=== PATIENT | female | born 1965 | race Caucasian/White ===

== ENCOUNTER 2023-09-20 22:20 | Emergency (ER) | payer OTHER, SELFPAY ==
[2023-09-20 22:23] VITALS: BP 124/76; PULSE 66; RESP 22; TEMP 36.4; O2SAT 96; BMI 29.0
--- NOTE | 2023-09-20 22:23 | XRR_ITS ---
PROCEDURE INFORMATION: Exam: XR Chest Exam date and time: 09/20/2023 10:38 PM Age: 58 years old Clinical indication: Shortness of breath; Patient HX: C/O SOB; Additional info: Dyspnea TECHNIQUE: Imaging protocol: Radiologic exam of the chest. Views: 1 view. COMPARISON: No relevant prior studies available. FINDINGS: Lungs: Unremarkable. No consolidation. Pleural spaces: Unremarkable. No pleural effusion. No pneumothorax. Heart/Mediastinum: Unremarkable. No cardiomegaly. Bones/joints: Unremarkable. XR/XR chest 1V portable [id number] IMPRESSION: No acute findings.
--- NOTE | 2023-09-20 22:30 | ECG_ITS ---
[facility] Test Date: 2023-09-20 Pat Name: Dior Overton Department: Room: Gender: Female Director Of Global Sales: : 1965 Requested By: Freddy Martinez Order Number: [id number] Manpreet MD: Michael Lanza M.D. Measurements Intervals [place] Rate: 51 P: 41 TX: 139 QRS: 12 QRSD: 102 T: 0 QT: 420 QTc: 389 Interpretive Statements SINUS BRADYCARDIA POSSIBLE LEFT ATRIAL ENLARGEMENT [-0.1mV P-WAVE IN V1/V2] INCOMPLETE RIGHT BUNDLE BRANCH BLOCK [90+ ms QRS DURATION, TERMINAL R IN V1/V2, 40+ ms S IN I/aVL/V4/V5/V6] MODERATE T-WAVE ABNORMALITY, CONSIDER ANTERIOR ISCHEMIA [-0.1+ mV T-WAVE IN V3/V4] No previous ECG available for comparison Electronically Signed On 09-22-2023 21:32:22 CDT by Michael Lanza M.D. [id number]
--- NOTE | 2023-09-20 22:43 | ED_ITS ---
HPI - SOB/Dyspnea 2 General: Chief Complaint: Shortness of Breath/Dyspnea Stated Complaint: SOB Time Seen by Provider: 09/20/23 22:21 Source: patient Mode of arrival: ambulatory Limitations: no limitations History of Present Illness: HPI Narrative: 58-year-old female with history of COPD longtime smoker states that she is diagnosed with pneumonia last week she is finished her course azithromycin and steroids and states she started having some shortness of breath tonight she started roughly 2 hours ago states her symptoms have improved she got feeling as short of breath she still had a slight cough she denies any chest pain denies any exertional dyspnea patient denies fever she has had bilateral joint pain in her knees. Associated symptoms: Deny abdominal pain, chest pain, fever(s), nausea or vomiting Review of Systems 2 Const: Denies: fever(s), chills, body aches or change in appetite ENMT: Denies: throat pain or dental pain Card: Denies: chest pain Resp: Reports: dyspnea, non-productive cough and wheezing GI: Denies: abdominal pain, nausea, vomiting or diarrhea Musc: Denies: neck pain or back pain Skin/Breast: Denies: rash Neuro: Denies: headache(s) Physical Exam 2 Const: COMMON NORMALS: no acute distress, patient oriented x3 and healthy appearing HENMT: COMMON NORMALS: normocephalic and atraumatic HEAD & SCALP: n ormocephalic and atraumatic Eye: COMMON NORMALS: conjunctivae normal CONJUNCTIVA: Yes conjunctivae normal Neck/C-Spine: COMMON NORMALS: full ROM and supple Chest: COMMONS NORMALS: normal inspection of the chest and normal palpation of entire chest wall Resp: COMMON NORMALS: No retractions and No use of accessory muscles OTHER: mild wheezing Cardio: COMMON NORMALS: regular rate, regular rhythm and No murmurs present (Cardio) RATE: regular rate RHYTHM: regular rhythm Extremity: COMMON NORMALS: normal to inspection and full ROM Neuro: COMMON NORMALS: patient oriented x3, moves all extremities and no focal motor deficits Psych: COMMON NORMALS: mental status grossly normal, Normal thought process present and cooperative THOUGHT PROCESS: Normal thought process present Skin: COMMON NORMALS: no rashes or lesions noted and no wounds GENERAL SKIN EXAM: no rashes or lesions noted Course 2 Vital Signs: Vital signs: Vital Signs Temperature 97.5 F L 09/20/23 22:23 Pulse Rate 85 09/21/23 00:10 Respiratory Rate 22 H 09/21/23 00:10 Blood Pressure 130/86 09/20/23 22:53 Pulse Oximetry 94 09/21/23 00:10 Oxygen Delivery Me thod Room Air 09/21/23 00:10 MDM - SOB/Dyspnea Medical Decision Making Patient presents with shortness of breath likely from her COPD she has been well-appearing here in no respiratory distress her pulse ox has been normal. D- dimer is negative no signs of acute coronary syndrome or pulmonary embolism. She had no chest pain. She does have some bilateral knee pain exam is benign no signs of septic joints distal pulses intact no signs of DVT she stable for discharge she is follow-up with her PCP and return if worsening. She did have a mildly elevated white count likely due to recent steroids Medical Records I reviewed the patient's medical records. Lab Data I reviewed the patient's lab results. 09/20/23 22:51 09/20/23 22:51 Labs/Radiology: Radiology Impressions Chest X-Ray 09/20/23 22:23 IMPRESSION: No acute findings. Laboratory Results WBC 14.16 10^3/uL (3.29-11.43) H 09/20/23 22:51 RBC 4.78 10^6/uL (3.85-5.65) 09/20/23 22:51 Hgb 14.50 g/dL (11.27-16.99) 09/20/23 22:51 Hct 43.3 % (36-47) 09/20/23 22:51 MCV 90.6 fl (85-98) 09/20/23 22:51 MCH 30.3 pg (27-33) 09/20/23 22:51 MCHC 33.5 g/dL (30-55) 09/20/23 22:51 RDW 12.7 % (12.1-15.1) 09/20/23 22:51 Plt Count 232 10^3/cmm (157-399) 09/20/23 22:51 MPV 12.8 fL (7.4-10.4) H 09/20/23 22:51 Neut % (Auto) 67.4 % 09/20/23 22:51 Lymph % (Auto) 25.3 % 09/20/23 22:51 George % (Auto) 4.9 % 09/20/23 22:51 Eos % (Auto) 1.6 % 09/20/23 22:51 Baso % (Auto) 0.4 % 09/20/23 22:51 Neut # (Auto) 9.55 10^3/uL (1.8-7.7) H 09/20/23 22:51 Lymph # (Auto) 3.6 10^3/uL (0.8-4.8) 09/20/23 22:51 George # (Auto) 0.7 10^3/uL (0.2-0.9) 09/20/23 22:51 Eos # (Auto) 0.2 10^3/uL (0.0-0.8) 09/20/23 22:51 Baso # (Auto) 0.1 10^3/uL (0.0-0.1) 09/20/23 22:51 Nucleated RBC % (auto) 0 % 09/20/23 22:51 Nucleated RBCs # 0.0 /100WBC 09/20/23 22:51 D-Dimer <= 0.27 ug/mLFEU (0-0.59) 09/20/23 22:51 Sodium 133 mmol/L (136-145) L 09/20/23 22:51 Potassium 3.7 mmol/L (3.5-5.1) 09/20/23 22:51 Chloride 99 mmol/L (98-107) 09/20/23 22:51 Carbon Dioxide 24 mmol/L (22-29) 09/20/23 22:51 Anion Gap 13.7 (5-19) 09/20/23 22:51 BUN 9 mg/dL (6-20) 09/20/23 22:51 Creatinine 0.8 mg/dL (0.5-0.9) 09/20/23 22:51 GFR Calculation 73.4 mL/min (90-130) L 09/20/23 22:51 Glucose 103 mg/dL (65-115) 09/20/23 22:51 Calculated Osmolality 275 mOsm/kg (285-295) L 09/20/23 22:51 Calcium 8.6 mg/dL (8.5-10.5) 09/20/23 22:51 Total Bilirubin 0.6 mg/dL (0.15-1.2) 09/20/23 22:51 AST 14 U/L (0-32) 09/20/23 22:51 ALT 12 U/L (0-33) 09/20/23 22:51 Alkaline Phosphatase 104 U/L (35-105) 09/20/23 22:51 NT-Pro-B Natriuret Pep 153 pg/mL (0-125) H 09/20/23 22:51 Total Protein 6.9 g/dL (6.6-8.7) 09/20/23 22:51 Albumin 4.0 g/dL (3.5-5.2) 09/20/23 22:51 Globulin 2.9 g/dL (1.3-4.6) 09/20/23 22:51 Urine Color Yellow (Yellow) 09/20/23 22:35 Urine Appearance Clear (CLEAR) 09/20/23 22:35 Urine pH 8 (5-7) H 09/20/23 22:35 Ur Specific [place] 1.005 (1.005-1.030) 09/20/23 22:35 Urine Protein Neg (Negative) 09/20/23 22:35 Urine Glucose (UA) Norm (Normal) 09/20/23 22:35 Urine Ketones Negative (Negative) 09/20/23 22:35 Urine Blood Neg (Negative) 09/20/23 22:35 Urine Nitrate Negative (Negative) 09/20/23 22:35 Urine Bilirubin Neg (Negative) 09/20/23 22:35 Urine Urobilinogen Neg mg/dL (Negative) 09/20/23 22:35 Ur Leukocyte Esterase Negative (Negative) 09/20/23 22:35 All radiology interpretation(s) finalized by discharge EKG Data EKG 1: I personally reviewed and interpreted this EKG as follows: EKG Interpretation Date: 09/20/23 EKG interpretation time: 22:30 Interpretation: sinus reed hr [address] elevation qrs 102 qtc 397 Discharge Plan Discharge Patient Disposition: Home Clinical Impression: Bilateral knee pain, COPD (chronic obstructive pulmonary disease) Condition: Stable Prescriptions: New hydrocodone-acetaminophen 5-325 mg tablet 1 tab PO Q6H PRN (Reason: pain) Qty: 14 0RF Naprosyn 500 mg tablet 500 mg PO BID PRN (Reason: pain) Qty: 20 0RF Discharge Orders: Discharge ED (Routine); Ordered 09/20/23 Ordered By: Freddy Martinez Referrals: Emil Echavarria [Primary Care Provider] - 4-7 days Discharge Diet: Advance as tolerated Discharge Activity: Resume usual activity Patient Instructions: COPD (Chronic Obstructive Pulmonary Disease) (ED), Knee Pain (ED) Coding Level of Care Code ED Screw Machine Setter for Stan Munoz
[2023-09-20 22:46] LABS: Add Urine Microscopic? NO; Bilirubin Urine Neg (Negative); Blood Urine Neg (Negative); Charge for UA Resulting for Rev; Glucose Urine UA Norm (Normal); Ketones Urine Negative (Negative); Nitrate Urine Negative (Negative); Protein Urine Neg (Negative); Specific Gravity, Urine 1.005 (1.005-1.030); Urine Appearance Clear (CLEAR); Urine Color Yellow (Yellow); pH Urine 8 (5-7)
[2023-09-20 22:47] LABS: Leukocyte Esterase Urine Negative (Negative); Urobilinogen Urine Neg (Negative)
[2023-09-20 22:53] VITALS: BP 130/86; PULSE 74; RESP 22; O2SAT 93
[2023-09-20 22:55] VITALS: PULSE 66; RESP 18; O2SAT 96
[2023-09-20] MEDS: ipratropium-albuterol 3 mL Neb INHALATION (22:55)
[2023-09-20 22:59] LABS: Basophils # 0.1 10^3/uL (0.0-0.1); Basophils % 0.4 %; Eosinophils # 0.2 10^3/uL (0.0-0.8); Eosinophils % 1.6 %; Hematocrit 43.3 % (36-47); Lymphocytes # 3.6 10^3/uL (0.8-4.8); Lymphocytes % 25.3 %; Mean Corpuscular HGB Conc 33.5 g/dL (30-55); Mean Corpuscular Hemoglobin 30.3 pg (27-33); Mean Corpuscular Volume 90.6 fl (85-98); Mean Platelet Volume 12.8 fL (7.4-10.4); Monocytes # 0.7 10^3/uL (0.2-0.9); Monocytes % 4.9 %; Neutrophils # 9.55 10^3/uL (1.8-7.7); Neutrophils % 67.4 %; Nucleated Red Blood Cells % 0 %; Platelet Count 232 10^3/cmm (157-399); Red Blood Count 4.78 10^6/uL (3.85-5.65); Red Cell Distribution Width 12.7 % (12.1-15.1); White Blood Count 14.16 10^3/uL (3.29-11.43)
[2023-09-20 23:02] VITALS: PULSE 72
[2023-09-20 23:13] LABS: D Dimer <= 0.27 ug/mLFEU (0-0.59)
[2023-09-20 23:28] LABS: Alanine Aminotransferase 12 U/L (0-33); Alkaline Phosphatase 104 U/L (35-105); Anion Gap 13.7 (5-19); Aspartate Amino Transferase 14 U/L (0-32); Blood Urea Nitrogen 9 mg/dL (6-20); Calcium 8.6 mg/dL (8.5-10.5); Carbon Dioxide 24 mmol/L (22-29); Chloride 99 mmol/L (98-107); Creatinine Clr Calc Pharmacy 70.4139; Globulin 2.9 g/dL (1.3-4.6); Glomerular Filtration Rate 73.4 mL/min (90-130); Glucose 103 mg/dL (65-115); NT Pro B Type Natriuretic Pept 153 pg/mL (0-125); Osmolality Calculated 275 mOsm/kg (285-295); Potassium 3.7 mmol/L (3.5-5.1); Sodium 133 mmol/L (136-145); Total Bilirubin 0.6 mg/dL (0.15-1.2); Total Protein 6.9 g/dL (6.6-8.7)
[2023-09-20] MEDS: HYDROcodone-acetaminophen 5-325 mg Tablet 1 TAB PO (23:46)
[2023-09-20] MEDS: ketorolac 30 mg/mL INJ 15 MG IVP (23:47)
[2023-09-21] MEDS: LORazepam 2 mg/mL INJ 10 mL MDV 0.5 MG IVP (00:08)
[2023-09-21 00:10] VITALS: PULSE 85; RESP 22; O2SAT 94
== END 2023-09-21 00:30 | disposition home or self-care (01) ==
PROVIDERS: Emergency Provider Emergency Medicine; PCP Family Medicine
DX: J44.9 Chronic obstructive pulmonary disease, unspecified (principal); M25.562 Pain in left knee; M25.561 Pain in right knee; R00.1 Bradycardia, unspecified
CPT/HCPCS: 71045; 80053; 81003; 83880; 85025; 85378; 93005; 94640; 96374; 96375; 99285; J1885; J2060

== ENCOUNTER 2025-01-21 12:48 | Emergency (ER) | payer OTHER, SELFPAY ==
--- OUTSIDE RECORDS SUMMARY | 2025-01-19 23:59 | XMS_ITS | Continuity of Care Document ---
Author Organization [facility] Address [facility] [address] [place] [address]- Care Team Providers Care Employee Benefits Attorney Name Role Phone Nikolas Shipman Primary Care Physician Encounter 01/17/25 - 01/19/25 [facility] [address] [place] [address]- Encounter Diagnosis Strep pharyngitis(Discharge Diagnosis) - 01/17/25 Attending Physician: Nikolas Shipman Encounter Type: Outpatient Allergies, Adverse Reactions, Alerts Substance Criticality Severity Reaction Reaction Severity Status sulfa drug Active Treatment Plan Extracted from: Title:strep pharyngitis Author:Wagner Shipman Date:01/17/25 1. Strep pharyngitis (J02.0: Streptococcal pharyngitis) based on exam findings and known exposures we will treat for strep at this time and they are agreeable with this plan. Pt to start course of Abx as prescribed. OTC supportive therapies discussed including Tylenol/ibuprofen per industrial sales engineer's recommendations, hydration efforts, use of antihistamines such as zyrtec/claritin/rebekah and nasal sprays such as flonase. Otherwise pt may follow up as needed and they are agreeable with this plan. Ordered: cephalexin(cephalexin 500 mg oral tablet), 500 mg= 1 tab(s), Oral, bid, (Ordered) [id number] office o/p est low meets or exceeds 20min (Charge), Quantity: 1, Strep pharyngitis Medications albuterol 90 mcg/inh inhalation aerosol 2 puff(s), Inhale, qid, PRN: for wheezing, # 17 g, 0 Refill(s), Type: Maintenance, Pharmacy: [facility], 2 puff(s) Inhale qid,PRN:for wheezing, 62, in, 12/02/22 12:12:00 CDT, Height Measured, 163, lb, 12/02/22 12:12:00 CDT, Weight Measured Start Date: 12/02/22 Status: Ordered Medication Dispense Status: Completed Quantity: 17.0 Unit: g Total Allowed Fills: 1 Fills Dispensed: 0 Indications: Acute upper respiratory infection, unspecified; CeleXA 40 mg oral tablet = 1 tab(s) ( 40 mg ), Oral, daily, # 90 tab(s), 3 Refill(s), Type: Maintenance, Pharmacy: [facility], 1 tab(s) Oral daily, 62, in, 12/09/24 15:42:00 CDT, Height Measured, 160, lb, 12/09/24 15:42:00 CDT, Weight Measured Start Date: 12/09/24 Status: Ordered Medication Dispense Status: Completed Quantity: 90.0 Unit: tab(s) Total Allowed Fills: 4 Fills Dispensed: 0 Indications: Reaction to severe stress, unspecified; Major depressive disorder, single episode, unspecified; cephalexin 500 mg oral tablet = 1 tab(s) ( 500 mg ), Oral, bid, x 10 day(s), # 20 tab(s), 0 Refill(s), Type: Acute, Pharmacy: [facility], 1 tab(s) Oral bid,x10 day(s), 62, in, 01/17/25 14:34:00 CDT, Height Measured, 160, lb, 01/17/25 14:34:00 CDT, Weight Measured Start Date: 01/17/25 Stop Date: 01/27/25 Status: Ordered Medication Dispense Status: Completed Quantity: 20.0 Unit: tab(s) Total Allowed Fills: 1 Fills Dispensed: 0 Indications: Streptococcal pharyngitis; Flonase 50 mcg/inh nasal spray = 2 spray(s), Nasal, daily, # 16 g, 2 Refill(s), Type: Maintenance, Pharmacy: [facility], SUBSTITUTION PERMITTED, 2 spray(s) zzNasal daily, 62, in, 07/03/23 8:59:00 CDT, Height Measured,169, lb, 07/03/23 8:59:00 CDT, Weight Measured Start Date: 07/03/23 Status: Ordered Medication Dispense Status: Completed Quantity: 16.0 Unit: g Total Allowed Fills: 3 Fills Dispensed: 0 Problem List Condition Confirmation Course Effective Dates Status Health Status Informant COPD with pneumonia Confirmed Active Depression Confirmed Active Stress at home Confirmed Active Obesity Probable Diagnosis Active Osteoarthritis Confirmed Active Diagnosis Diagnosis Type Effective Dates Health Status Clinical Service Informant Strep pharyngitis Discharge Diagnosis 01/17/25 Non-Specified Vital Signs Most recent to oldest [Reference Range]: 1 Height Measured 62 in (01/17/25 2:34 PM) Weight Measured 160 lb (01/17/25 2:34 PM) Body Mass Index [18.5-25 kg/m2] 29.26 kg /m2 *HI* (01/17/25 2:34 PM) BSA 1.78 m2 (01/17/25 2:34 PM) Temperature Tympanic [96.4-100.4] 98.0 (01/17/25 2:34 PM) Blood Pressure [90-120/60-80 mmHg] 128/7 6mmHg *HI* (01/17/25 2:34 PM) Mean Arterial Pressure 93 mmHg (01/17/25 2:34 PM) Peripheral Pulse Rate [60-100 bpm] 71 bp m (01/17/25 2:34 PM) SpO2 [95 %] 96 % (01/17/25 2:34 PM) Social History Social History Type Response Sex Sex Representation Female (finding) Physician Outpatient Note * Nikolas Shipman: PERFORM Event Display: General Clinic Note (Physician) Authored Date: [id number] Dior Overton Address: [address] [place] [address] Home Phone:[phone] Sex:Female :1965 Location:[facility] Date of Service:01/17/2025 Chief Complaint C/O SORE THROAT,HEADACHE, COUGH X'S 1 DAY History of Present Illness Pt presents today w?? onset of sore throat since yesterday and worsening today. some subjective?? fevers to this point. of note pt does have multiple family members being treated for strep currently.?? Review of Systems Constitutional:??moderate??fever,??no??chills,??no??sweats,??no??weakness Respiratory:??no??shortness of breath,??moderate??cough Cardiovascular:??no??chest pain Additional ROS info: Except as noted in the above Review of Systems and in the History of Present Illness all other systems have been reviewed and are negative or noncontributory.?? Physical Exam Vitals & Measurements T:??98.0??(Tympanic)?? HR:??71??(Peripheral)?? BP:??128/76?? SpO2:??96%?? HT:??62??in?? WT:??160??lb?? BMI:??29.26?? General:??alert,??no acute distress. Cardiovascular:??regular??rate and rhythm,??normal??peripheral perfusion. Respiratory: Lungs??CTA, respirations??non-labored. HENT: head is normocephalic w no lymphadenopathy noted; TMs intact and nonerythematous; oropharynx w erythema and mild swelling?present?? Extremities:??no??deformity,??no??trauma. Neurological:??oriented??x4, LOC??appropriate for age Assessment/Plan 1.??Strep pharyngitis (J02.0: Streptococcal pharyngitis) based on exam findings and known exposures we??will treat for strep at this time and they are agreeable with this plan. Pt to start course of Abx as prescribed. OTC supportive therapies discussed including Tylenol/ibuprofen per industrial sales engineer's recommendations, hydration efforts, use of antihistamines such as zyrtec/claritin/rebekah and nasal sprays such as flonase. Otherwise pt may follow up as needed and they are agreeable with this plan.?? Ordered: cephalexin(cephalexin 500 mg oral tablet), 500 mg= 1 tab(s), Oral, bid, (Ordered) [id number] office o/p est low meets or exceeds 20min (Charge), Quantity: 1, Strep pharyngitis ?? PCP/Referring Provider Primary Care Provider (PCP):?Nikolas Shipman ?NPI# [id number] Referring Provider:?No referring provider recorded for selected visit. Problem List/Past Medical History Ongoing COPD with pneumonia Laterality: Right Depression Obesity Osteoarthritis Stress at home Medications albuterol(albuterol 90 mcg/inh inhalation aerosol), 2 puff(s), Inhale, qid, PRN cephalexin(cephalexin 500 mg oral tablet), 500 mg= 1 tab(s), Oral, bid citalopram(CeleXA 40 mg oral tablet), 40 mg= 1 tab(s), Oral, daily, 3 refills fluticasone nasal(Flonase 50 mcg/inh nasal spray), 2 spray(s), zzNasal, daily, 2 refills Allergies sulfa drug Social History Alcohol - Current Tobacco - Current Family History Cancer..: Father. Diabetes mellitus type II: Mother. Heart disease: Mother and Father. High blood pressure: Father. Hypercholesterolemia: Father. Stroke: Father. Health Status Family Member(s) Electronically Signed on 01/17/25 04:00 PM Nikolas Shipman Patient Care team information Care Team Personnel Name: Nikolas Shipman Position: EMR Mid-Level Access (Supervised) Member Role: Primary Care Physician Address: [facility] [employer] [place] [address] P: F: [place] [address]- [place] Tele[employer]: Family History Name: UnknownRelationship: Mother Condition State Severity Life Cycle Status Age at Onset Diabetes mellitus type II POSITIVE Heart disease POSITIVE Name: UnknownRelationship: Father Condition State Severity Life Cycle Status Age at Onset Heart disease POSITIVE Cancer.. POSITIVE Hypercholesterolemia POSITIVE Stroke POSITIVE High blood pressure POSITIVE Insurance Providers Guarantor name: CARLOS Health Plan Information #: 1 Payer: [facility] - Insurance Organization Payer Identifier: CARLOS Member Number: [id number] Group Number: [id number] Subscriber Identifier: [id number] Relationship to Subscriber: self Coverage Type: NA Coverage Verification Date: NA Telecom: NA Address: NA
--- OUTSIDE RECORDS SUMMARY | 2025-01-21 12:58 | XMS_ITS | Encounter Summary ---
Author Organization [facility] Address [address] [place] [address] Care Team Providers Care Facilities Engineering Manager Name Role Phone Unavailable Primary Care Provider Unavailabl e Encounter Details Date Type Department Care Team (Late st Contact Info) Description 12/24/1998 Outpatient Historical [facility] [address] [address] Social History Tobacco Use Types Packs/Day Years Used Date Smoking Tobacco: Never Assessed Comments Unknown Sex and Gender Information Value Date Recorded Sex Assigned at Not on file Legal Sex Female 5:13 AM HAND BUFFER Gender Identity Not on file Sexual Orientation Not on file documented as of this encounter Plan of Treatment Not on file documented as of this encounter Visit Diagnoses Not on filedocumented in this encounter
--- OUTSIDE RECORDS SUMMARY | 2025-01-21 12:58 | XMS_ITS | Encounter Summary ---
Author Organization [facility] Address [address] [place] [address] Care Team Providers Care Alternative Education Teacher Name Role Phone Unavailable Primary Care Provider Unavailabl e Encounter Details Date Type Department Care Team (Latest Contact Info) Description 06/21/2002 Outpatient Historical [facility] Gen Spec [place] [address] [place] [phone] Osvlado Pelletier MD [address] [place] [phone] SEBACEOUS CYST (Primary Dx) Social History Tobacco Use Types Packs/Day Years Used Date Smoking Tobacco: Never Assessed Comments Unknown Sex and Gender Information Value Date Recorded Sex Assigned at Not on file Legal Sex Female 5:13 AM ORDER PROCESSOR Gender Identity Not on file Sexual Orientation Not on file documented as of this encounter Plan of Treatment Not on file documented as of this encounter Visit Diagnoses Diagnosis Sebaceous cyst- Primary documented in this encounter
--- OUTSIDE RECORDS SUMMARY | 2025-01-21 12:58 | XMS_ITS | Clinical Summary ---
Author Organization [facility] Address [address] [facility] Attn: Epic Prelude ADT [place]Y [place] [address] Care Team Providers Care Press Operator Automatic Name Role Phone Unavailable Primary Care Provider Unavailabl e Allergies Active Allergy Reactions Criticality Noted Date Comments Clindamycin Rash Medium 06/14/2018 Sulfa (Sulfonamide Antibiotics) Hives High 05/2017 Medications mupirocin (BACTROBAN) 2 % OintmentIndicat ions:Abscess Apply to affected area 3 times daily. 15 Gram 1 9 Active albuterol (PROVENTIL,VENT LEI) 2.5 mg /3 mL (0.083 %) Solution for NebulizationInd ications:Influe nza with pneumonia Take 3 mL (2.5 mg) by inhalation every 4 hours as needed for Shortness of Breath or Wheezing. 90 mL 2 8 Active citalopram (CeleXA) 40 mg tablet Take 1 Tablet (40 mg) by mouth daily. 90 Tablet 3 3 Active Active Problems Problem Noted Date Diagnosed Date Tobacco use disorder 03/29/2017 Immunizations Immunization Administration Dates Next Due INFLUENZA VACCINE QUADRIVALE NT 6 MOS UP PF IM 01/04/2021,12/13/2019,12/14/2018 Family History Medical History Relation Name Comments Cancer Father Heart Disease Mother Relation Name Status Comments Father Mother Social History Tobacco Use Types Packs/Day Years Used Date Smoking Tobacco: Every Day Cigarettes Smokeless Tobacco: Never Alcohol Use Standard Drinks/Week Comments No 0 (1 standard drink = 0.6 oz pur e alcohol) Comments Unknown Sex and Gender Information Value Date Recorded Sex Assigned at Not on file Legal Sex Female 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 Gender Identity Not on file Sexual Orientation Not on file Last Filed Vital Signs Vital Sign Reading Time Taken Comments Blood Pressure 132/80 06/08/2018 8:25 AM CDT Pulse 97 06/08/2018 8:25 AM CDT Temperature 37.6 C (99.6 F) 06/08/2018 8:25 AM CDT Respiratory Rate 18 06/08/2018 8:25 AM CDT Oxygen Saturation - - Inhaled Oxygen Concentration - - Weight 76.1 kg (167 lb 12.8 oz) 06/08/2018 8:25 AM CDT Height 157.5 cm (5' 2 ) 06/08/2018 8:25 AM CDT Body Mass Index 30.69 06/08/2018 8:25 AM CDT Plan of Treatment Health Maintenance Due Date Last Done Comments DTAP/TDAP/TD VACCINES (1 - Tdap) 02/12/1983 HPV/Cotest (21-29) 02/12/1985 CERVICAL CANCER SCREENING 02/12/1994 HPV/Cotest (30-65) 02/12/1994 PAP SMEAR 02/12/1994 BREAST CANCER SCREENING 2004 COLORECTAL SCREENING 02/12/2009 Colorectal Cancer Screening 02/12/2009 FIT-DNA Q 3 years 02/12/2009 FIT/FOBT Q 1 year 02/12/2009 Flex Sig/CT Colonography Q 5 years 02/12/2009 ZOSTER VACCINE (1 of 2) 02/12/2014 INFLUENZA VACCINE (#1) 2024 , 12/13/2019, 12/14/2018 RSV VACCINE (60+ or ) (1 - 1-dose 75+ series) 02/12/2039 HEPATITIS B VACCINES Aged Out No long er eligible based on patient's age to complete this topic
--- OUTSIDE RECORDS SUMMARY | 2025-01-21 12:58 | XMS_ITS | Encounter Summary ---
Author Organization [facility] Address [address] [place] [address] Care Team Providers Care Customer Solutions Teammate Name Role Phone Unavailable Primary Care Provider Unavailabl e Encounter Details Date Type Department Care Team (Latest Contact Info) Description 06/07/2002 Outpatient Historical [facility] Gen Spec Surg [place] 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
--- OUTSIDE RECORDS SUMMARY | 2025-01-21 12:58 | XMS_ITS | Encounter Summary ---
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
--- OUTSIDE RECORDS SUMMARY | 2025-01-21 12:58 | XMS_ITS | Encounter Summary ---
Author Organization [facility] Address [address] [place] [address] Care Team Providers Care Press Puller Name Role Phone Unavailable Primary Care Provider Unavailabl e Encounter Details Date Type Department Care Team (Latest Contact Info) Description 08/12/2006 Outpatient Historical [address] [phone] Dylon Byrd, APPLICATION SECURITY ARCHITECT [address], [place] [id number] Osteoarth NOS-Other Site (Primary Dx); Other Bursitis Disorders Social History Tobacco Use Types Packs/Day Years Used Date Smoking Tobacco: Never Assessed Comments Unknown Sex and Gender Information Value Date Recorded Sex Assigned at Not on file Legal Sex Female 5:13 AM ACTIVITIES DIRECTOR Gender Identity Not on file Sexual Orientation Not on file documented as of this encounter Plan of Treatment Not on file documented as of this encounter Visit Diagnoses Diagnosis Osteoarthrosis, unspecified whether generalized or localized, other specified sites- Primary Other bursitis disorders documented in this encounter
--- OUTSIDE RECORDS SUMMARY | 2025-01-21 12:58 | XMS_ITS | Encounter Summary ---
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
--- OUTSIDE RECORDS SUMMARY | 2025-01-21 12:58 | XMS_ITS | Clinical Summary ---
Author Organization [facility] Address [address] [place] [address] Care Team Providers Care Art Librarian Name Role Phone Unavailable Primary Care Provider Unavailabl e Allergies Active Allergy Reactions Criticality Noted Date Comments Clindamycin Rash Medium 06/14/2018 Sulfa (Sulfonamide Antibiotics) Hives High 05/2017 Medications albuterol (PROVENTIL,VENT LEI) 2.5 mg /3 mL (0.083 %) Solution for NebulizationInd ications:Influe nza with pneumonia Take 3 mL (2.5 mg) by inhalation every 4 hours as needed for Shortness of Breath or Wheezing. 90 mL 2 8 Active ciprofloxacin HCl (CIPRO) 250 mg tablet Take 1 Tablet (250 mg) by mouth 2 times daily. 10 Tablet 8 Active mupirocin (BACTROBAN) 2 % OintmentIndicat ions:Abscess Apply to affected area 3 times daily. 15 Gram 1 9 Active Active Problems Problem Noted Date Diagnosed Date Tobacco use disorder 03/29/2017 Immunizations Immunization Administration Dates Next Due INFLUENZA VACCINE QUADRIVALENT 6 MOS UP PF IM ,12/14/2018 Family History Medical History Relation Name Comments Cancer Father Heart Disease Mother Relation Name Status Comments Father Mother Social History Tobacco Use Types Packs/Day Years Used Date Smoking Tobacco: Every Day Cigarettes Smokeless Tobacco: Never Alcohol Use Standard Drinks/Week Comments No 0 (1 standard drink = 0.6 oz pur e alcohol) Comments No Sex and Gender Information Value Date Recorded Sex Assigned at Not on file 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 Gender Identity Not on file Sexual Orientation Not on file Last Filed Vital Signs Vital Sign Reading Time Taken Comments Blood Pressure 132/80 06/08/2018 8:25 AM CDT Pulse 97 06/08/2018 8:25 AM CDT Temperature 37.6 C (99.6 F) 06/08/2018 8:25 AM CDT Respiratory Rate 18 06/08/2018 8:25 AM CDT Oxygen Saturation 99% 06/08/2018 8:25 AM CDT Inhaled Oxygen Concentration - - Weight 76.1 [...] Flex Sig/CT Colonography Q 5 years 02/12/2009 RSV VACCINE (60+ or ) (1 - Risk 50-74 years 1-dose series) 02/12/2014 ZOSTER VACCINE (1 of 2) 02/12/2014 INFLUENZA VACCINE (#1) 2024 0, 12/14/2018 HEPATITIS B VACCINES Aged Out No long er eligible based on patient's age to complete this topic [place] [address] [address] [place] [address]
[2025-01-21 12:59] VITALS: BP 143/81; PULSE 75; RESP 16; TEMP 36.7; O2SAT 97; BMI 29.2
--- NOTE | 2025-01-21 13:27 | XRR_ITS ---
PROCEDURE INFORMATION: Exam: XR Right Foot Exam date and time: 01/21/2025 1:51 PM Age: 59 years old Clinical indication: Injury or trauma; Fall; Blunt trauma; Foot; Right TECHNIQUE: Imaging protocol: Radiologic exam of the right foot. Views: 3 or more views. COMPARISON: No relevant prior studies available. FINDINGS: Bones/joints: Inferior and posterior bone spurs of the calcaneus. No visible acute skeletal pathology. Soft tissues: Soft tissues are unremarkable. XR/XR foot RT min 3V* [id number] IMPRESSION: No visible acute skeletal pathology.
--- NOTE | 2025-01-21 13:57 | ED_ITS ---
HPI - Extremity Problem General: Chief complaint: Extremity Injury, Lower Stated complaint: R foot hurt Time Seen by Provider: 01/21/25 13:27 History of Present Illness: 59-year-old female complains of right fo ot pain. Last night she dropped a starter on the dorsum of her foot she is complaining of pain over the 1st and 2nd medic tarsals. She has not been able to walk no other injury. Related Data Home Medications ?Medication ?Instructions ?Recorded ?Confirmed citalopram 40 mg tablet 40 mg PO DAILY 01/21/2501/21 Allergies Allergy/AdvReac Type Severity Reaction Status Date / Time Sulfa (Sulfonamide Allergy ALGY-Rash Verified 01/30/25 07:33 Antibiotics) PFSH ED PFSH: Social History Smoking and tobacco/nicotine status: current every day tobacco/nicotine user Physical Exam Const: COMMON NORMALS: no acute distress GENERAL APPEARANCE: cooperative and comfortable ORIENTATION/CONSCIOUSNESS: Yes awake, Yes oriented to person, Yes oriented to place and Yes oriented to time HENMT: COMMON NORMALS: normocephalic, atraumatic and hearing grossly normal bilaterally HEAD & SCALP: normocephalic and atraumatic Resp: COMMON NORMALS: normal respiratory effort, No retractions, No use of accessory muscles and clear to auscultation bilaterally AUSCULTATION: clear to auscultation bilaterally Cardio: COMMON NORMALS: regular rate, regular rhythm and No murmurs present (Cardio) RATE: regular rate RHYTHM: regular rhythm Extremity: OTHER: Mild erythema across the dorsum of the foot no acute swelling no deformity no laceration Neuro: SENSORIUM/ORIENTATION: Yes oriented to person, Yes oriented to place and Yes oriented to time Skin: COMMON NORMALS: no rashes or lesions noted GENERAL SKIN EXAM: no rashes or lesions noted Course Vital Signs: Vital signs: Vital Signs Temperature 98.1 F 01/21/25 12:59 Pulse Rate 72 01/21/25 15:11 Respiratory Rate 18 01/21/25 15:11 Blood Pressure 139/80 01/21/25 15:11 Pulse Oximetry 95 01/21/25 15:11 MDM - Extremity (Nontraumatic) Medical Decision Making Suspicious that patient has a fracture of the left fourth metatarsal there is a lucent line she is complaining of pain in the area will place her in a splint, none weightbearing and have her follow-up with podiatry. Lab Data Radiology Impressions Foot X-Ray 01/21/25 13:27 IMPRESSION: No visible acute skeletal pathology. All radiology interpretation(s) finalized by discharge Discharge Plan Discharge Patient Disposition: Home Clinical Impression: Closed fracture of base of fourth metacarpal bone Condition: Stable Prescriptions: No Action citalopram 40 mg tablet 40 mg PO DAILY Discharge Orders: Discharge ED (Routine); Ordered 01/21/25 Ordered By: Kevin Noel Discharge Diet: Usual diet Discharge Activity: Limit activity as instructed Patient Instructions: Opioid Safety, Pain Management, Patient Portal & Brooks Instructions Activity Restrictions/Additional Instructions: [facility] It is very important that you follow up as instructed or that you return to the Emergency Department should you have concerns or if your condition changes or worsens in any way. Emergency department visits are focused on emergent conditions, in some cases you may require further evaluation on an outpatient basis. You were seen emergency room after dropping a heavy object on your right foot. On the x-ray there appears to be if nondisplaced fracture to proximal part of the fourth metatarsal. Will place you in a posterior splint have you not bear any weight on the foot and use crutches. Case management make a follow-up with orthopedics. Elevate foot apply ice use Tylenol as needed. (Please note that included in your discharge packet is information concerning opioid safety and pain management. 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
[2025-01-21 15:11] VITALS: BP 139/80; PULSE 72; RESP 18; O2SAT 95
--- NOTE | 2025-01-23 18:25 | DCPLANNER ---
messaged podiatry for er f/u
--- NOTE | 2025-01-24 08:09 | DCPLANNER ---
Message sent to Podiatry-
== END 2025-01-21 15:23 | disposition home or self-care (01) ==
PROVIDERS: Emergency Provider Family Medicine
DX: S62.316A Displaced fracture of base of fifth metacarpal bone, right hand, initial encounter for closed fracture (principal); W20.8XXA Other cause of strike by thrown, projected or falling object, initial encounter; Z72.0 Tobacco use
CPT/HCPCS: 73630; 99283